=== PATIENT | male | born 1990 | race Caucasian/White ===

== ENCOUNTER 2018-05-14 11:22 | Emergency (ER) | payer SELFPAY ==
--- NOTE | 2018-05-14 11:38 | UC ---
Throat Pain/Nasal Jose Alfredo HPI - HPI Summary HPI Summary: Pt presents to with body aches, congestion, pnd, sinus pressure, cough and myalgias x 36 hours. Pt states his son has been sick. He took a nap with son and became sick within 8 hours. Pt has been taking otc meds with little relief. no sob. cough, dry no rash did not get flu vaccine pt's medications reviewed this visit - History of Current Complaint Stated Complaint: SORE THROAT, FEVER, HEADACHE Time Seen by Provider: 05/14/18 11:34 Hx Obtained From: Patient Onset/Duration: Sudden Onset Severity: Moderate - Allergies/Home Medications Allergies/Adverse Reactions: Allergies Allergy/AdvReac Type Severity Reaction Status Date / Time No Known Allergies Allergy Verified 05/14/18 11:46 Home Medications: Home Medications Acetaminophen [Acetaminophen Extra Strength] 1,000 mg PO DAILY PRN 05/14/18 [ History Confirmed 05/14/18] Dm/Acetaminophen/Doxylamine [Vicks Nyquil Cold & Flu N 15-6.25-325 mg] 2 cap PO QPM PRN 05/14/18 [History Confirmed 05/14/18] Ibuprofen TAB* [Motrin TAB* 600 MG] 600 mg PO SEE INSTRUCTIONS PRN 05/14/18 [ History Confirmed 05/14/18] Phenylephrine/Dm/Acetaminop/GG [Vicks Dayquil Severe Cold-Flu] 2 each PO ONCE PRN 05/14/18 [History Confirmed 05/14/18] PMH/Surg Hx/FS Hx/Imm Hx Previously Healthy: Yes - Surgical History Surgical History: None - Family History Known Family History: Positive: Other - son with similar sx - Social History 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 EOM intact and full ENT: Hearing grossly normal TM x 2 clear, congested turbinates. + PND. mmoist , uvula midline, no exudate, no erythema Neck: Positive: Supple Respiratory: Positive: No respiratory distress, No accessory muscle use + CTA throughout no w/r, coarse cough Cardiovascular: RRR nl s1, s2 no m/r CBT <2 sec abd soft + BS nt/nd no guarding, no distension Musculoskeletal Exam: INFANTE x 4 without difficulty Strength Intact, ROM Intact Neurological: Positive: Alert, + sensation throughout Psychological: Positive: Normal Response To Family Skin: Positive: no rash, no ecchymosis Triage Information Reviewed: Yes Throat Pain/Nasal Course/Dx - Course Course Of Treatment: Pt presents to with body aches, cough, congested started abruptly 26 horus ago. Pt with fatigue. VSS. pt congested with cough. + flu. tamiflu. hydate. motrin/apap. flonase. return precautions. work note - Differential Dx/Diagnosis Provider Diagnosis: Influenza A Discharge - Sign-Out/Discharge Documenting (check all that apply): Patient Departure All imaging exams completed and their final reports reviewed: No Studies - Discharge Plan Condition: Stable Disposition: HOME Prescriptions: Fluticasone NASAL SPRAY 50MCG* [Flonase NASAL SPRAY 50MCG*] 2 spray BOTH NARES DAILY #1 btl Oseltamivir CAP* [Tamiflu CAP*] 75 mg PO BID #10 cap Patient Education Materials: Influenza (ED) Forms: *Gen. Provider Communication, *Work Release Referrals: Reese Mon MD [Primary Care Provider] - Additional Instructions: - Stay well hydrated. Drink plenty of non-alcoholic, non-caffinated beverages. - Alternate ibuprofen (Advil, Motrin) 600mg and Tylenol every 3 hours for pain or fever. Take with food. Do NOT take for more than 4-5 days. - These infections are spread by secretions - do NOT share eating or drinking utensils - clean items you share with other people such as cell phones, computer mouse, TV remote, computer tablets,etc. Once you start to feel better, change your toothbrush and your pillowcase. - get plenty of restful sleep - humidify the air in the room where you sleep - boil water, run a hot steam shower, vaporizer, cups of water by heat register - okay to take over the counter decongestant and cough medication - Take Tamiflu as prescribed - Use nasal spray as prescribed - contact your doctor or return with questions or concerns - Billing Disposition and Condition Condition: STABLE Disposition: Home
[2018-05-14 11:56] VITALS: BP 121/84
== END 2018-05-14 12:46 | disposition home or self-care (01) ==
LOC: UCCORT 11:22
DX: J09.X2 Influenza due to identified novel influenza A virus with other respiratory manifestations (principal)
CPT/HCPCS: 87651; 99202; G0463